=== PATIENT | male | born 1945 | race Two or more races ===

== ENCOUNTER 2019-04-04 07:10 | Outpatient (CLI) | payer OTHER | END 2019-04-04 07:18 | disposition home or self-care (01) | LOC: SONOGRAMA 07:10 | DX: R97.20 Elevated prostate specific antigen [PSA] (principal) ==

== ENCOUNTER 2020-01-28 07:30 | Inpatient (IN) | payer OTHER ==
[~2020-01-28] VITALS: Ht 170.2 cm; Wt 57.0 kg
[2020-01-28] MEDS ORDERED: TAMS0.4C PO (09:14)
[2020-01-28] MEDS ORDERED: ACID REDUCER20 M1 PO (09:15)
[2020-01-28] MEDS ORDERED: SIMVAST PO (09:15)
[2020-02-04] MEDS ORDERED: FOLIC ACID1 MG (07:55)
[2020-02-04] MEDS ORDERED: SIMVASTATIN10 MG (07:56)
[2020-02-04] MEDS ORDERED: PANTOPRAZOLE SO40 MG (07:56)
== END 2020-02-06 12:01 | disposition home or self-care (01) | DRG 708 ==
LOC: O/R 02-04 06:23 → SURH 02-04 06:23
PROVIDERS: ADMIT Urology; ATTEND Urology
PROC: 07BC0ZX Excision of Pelvis Lymphatic, Open Approach, Diagnostic (ICD-10-PCS; 2020-02-04)
PROC: 0VT00ZZ Resection of Prostate, Open Approach (ICD-10-PCS; principal; 2020-02-04 07:00)
DX: C61 Malignant neoplasm of prostate (principal); I10 Essential (primary) hypertension